=== PATIENT | male | born 1960 ===

== ENCOUNTER 2020-10-22 16:12 | Emergency (ER) | payer OTHER ==
[~2020-10-22] VITALS: Ht 167.6 cm; Wt 83.9 kg
[~2020-10-22 16:12] MED LIST: ACIDOPHILUS1 EAC1 PO; AMOX1TAB12 PO; MEDROLPACK PO; MUCINEX1200 MG PO
[2020-10-22] MEDS ORDERED: PROBIOTICO (17:00)
== END 2020-10-22 22:32 | disposition home or self-care (01) ==
LOC: ER 16:12
DX: K57.92 Diverticulitis of intestine, part unspecified, without perforation or abscess without bleeding (principal)

== ENCOUNTER 2020-12-27 06:00 | Day surgery (SDC) | payer OTHER ==
[~2020-12-27 06:00] MED LIST changes: +PROBIOTICO
== END 2020-12-27 10:19 | disposition home or self-care (01) ==
LOC: AMB-ENDOS 06:00
PROVIDERS: ATTEND Colon & Rectal Surgery
DX: K57.32 Diverticulitis of large intestine without perforation or abscess without bleeding (principal); K64.2 Third degree hemorrhoids; Z20.822 Contact with and (suspected) exposure to COVID-19

== ENCOUNTER 2021-01-28 11:15 | Inpatient (IN) | payer OTHER ==
[~2021-01-28] VITALS: Ht 167.6 cm; Wt 85.7 kg
[2021-02-04] MEDS ORDERED: PROBIOTIC1 EAC2 (10:21)
[2021-02-08] MEDS ORDERED: LEVOFLOXACIN500 MG PO (09:29)
[2021-02-08] MEDS ORDERED: INTESTINEX680 M1 PO (09:30)
[2021-02-08] MEDS ORDERED: PERCOCET 5-3251 EACH PO (09:30)
[2021-02-08] MEDS ORDERED: LEVSIN/SL0.125 MG SL (09:31)
== END 2021-02-08 09:44 | disposition home or self-care (01) | DRG 331 ==
LOC: EDSTATUS 11:15 → ADM 11:15 → SURG 02-04 05:42 → O/R 02-04 05:42 → SURH 02-04 08:45 → SURG 02-04 11:13 → SURH 02-04 11:15 → SURG 02-08 09:44
PROVIDERS: ADMIT Colon & Rectal Surgery; ATTEND Colon & Rectal Surgery
PROC: 0TQB4ZZ Repair Bladder, Percutaneous Endoscopic Approach (ICD-10-PCS; 2021-02-04)
PROC: 0DTN4ZZ Resection of Sigmoid Colon, Percutaneous Endoscopic Approach (ICD-10-PCS; principal; 2021-02-04 08:45)
DX: K57.32 Diverticulitis of large intestine without perforation or abscess without bleeding (principal); E78.5 Hyperlipidemia, unspecified

== ENCOUNTER 2021-02-15 07:26 | Emergency (ER) | payer OTHER ==
[~2021-02-15] VITALS: Ht 167.6 cm; Wt 79.4 kg
[~2021-02-15 07:26] MED LIST changes: +INTESTINEX680 M1 PO; +LEVOFLOXACIN500 MG PO; +LEVSIN/SL0.125 MG SL; +PERCOCET 5-3251 EACH PO; +PROBIOTIC1 EAC2
[2021-02-15] MEDS ORDERED: TAMS0.4C PO (07:45)
[2021-02-15] MEDS ORDERED: MATULANE50 MG PO (07:46)
== END 2021-02-15 11:32 | disposition home or self-care (01) ==
LOC: ER 07:26
DX: N40.0 Benign prostatic hyperplasia without lower urinary tract symptoms (principal); K59.09 Other constipation; R30.0 Dysuria